=== PATIENT | female | born 1980 | race Caucasian/White ===

== ENCOUNTER 2017-02-08 11:38 | Emergency (ER) | payer SELFPAY ==
[~2017-02-08] VITALS: Ht 157.5 cm; Wt 75.2 kg
[2017-02-08] MEDS ORDERED: MORPHINE SULFATE 4 MG/ML, 1ML IVPush PRN (12:30)
[2017-02-08] MEDS ORDERED: SODIUM CHLORIDE 0.9% 1,000ML IVBOLUS ONE (12:30)
[2017-02-08] MEDS ORDERED: MORPHINE SULFATE 4 MG/ML, 1ML ONE (12:30)
[2017-02-08] MEDS ORDERED: ONDANSETRON 2MG/ML, 2ML IVPush ONE (12:30)
[2017-02-08] MEDS ORDERED: SODIUM CHLORIDE FLUSH 10ML SYR IVF ONE (12:30)
[2017-02-08] MEDS ORDERED: ONDANSETRON 2MG/ML, 2ML ONE (12:30)
[2017-02-08 12:45] LABS: ASPARTATE AMINO TRANSFERASE 53 U/L (15-37); BLOOD UREA NITROGEN 5 mg/dL (7-18)
[2017-02-08] MEDS ORDERED: POTASSIUM CHLORIDE 20 MEQ TAB.ER.PRT PO ONE (13:30)
[2017-02-08 14:06] VITALS: BP 110/58
== END 2017-02-08 14:08 | disposition home or self-care (01) ==
LOC: ED 12:15
DX: K52.9 Noninfective gastroenteritis and colitis, unspecified (principal); N30.00 Acute cystitis without hematuria
CPT/HCPCS: 36415; 80053; 81001; 83690; 84703; 85025; 87086; 96361; 96374; 99284; J2405; J7030

== ENCOUNTER 2018-08-20 17:54 | Emergency (ER) | payer OTHER ==
[~2018-08-20] VITALS: Ht 157.5 cm; Wt 84.0 kg
[2018-08-20] MEDS ORDERED: RANI150T23 PO (18:10)
[2018-08-20 18:22] LABS: BASOPHILS # (AUTO) 0.05 x10^3/uL (0-0.1); BASOPHILS % (AUTO) 1 % (0-1); EOSINOPHILS # (AUTO) 0.07 x10^3/uL (0-0.4); EOSINOPHILS % (AUTO) 1 % (1-7); LYMPHOCYTES # (AUTO) 3.92 x10^3/uL (1-3.4); LYMPHOCYTES % (AUTO) 47 % (22-44); MD NO; MEAN CORPUSCULAR HEMOGLOBIN 33.5 pg (27.0-34.8); MEAN CORPUSCULAR HGB CONC 34.6 g/dL (32.4-35.8); MEAN CORPUSCULAR VOLUME 96.7 fL (80-100); MEAN PLATELET VOLUME 7.3 fL (7.4-10.4); MONOCYTES % (AUTO) 8 % (2-9); NEUTROPHILS # (AUTO) 3.69 x10^3/uL (1.8-6.8); NEUTROPHILS % (AUTO) 44 % (42-75); PLATELET COUNT 289 x10^3/uL (130-400); RED BLOOD COUNT 4.61 x10^6/uL (3.82-5.3); RED CELL DISTRIBUTION WIDTH 13.7 % (9.6-15.2)
[2018-08-20] MEDS ORDERED: ONDANSETRON ODT 8 MG ONE (18:23)
[2018-08-20] MEDS ORDERED: ONDANSETRON ODT 8 MG PO ONE (18:30)
[2018-08-20 18:33] LABS: ALANINE AMINOTRANSFERASE 41 U/L (12-78); ALBUMIN 3.6 g/dL (3.4-5.0); ANION GAP 12 mmol/L (5-15); CALCIUM 7.8 mg/dL (8.5-10.1); CHLORIDE 111 mmol/L (98-107); CREATININE 0.61 mg/dL (0.55-1.02)
[2018-08-20 18:38] LABS: ALKALINE PHOSPHATASE 108 U/L (45-117); BILIRUBIN,TOTAL 0.2 mg/dL (0.2-1.0); TROPONIN I < 0.015 ng/mL (0.000-0.045)
--- NOTE | 2018-08-20 18:54 | NUR ---
REPORT GIVEN TO TAL
--- NOTE | 2018-08-20 18:58 | NUR ---
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 PT RESTING IN BED TALKING ON PHONE. PT ON ALL MONITORS. NAD AT THIS TIME.
[2018-08-20 20:09] VITALS: BP 123/61
== END 2018-08-20 20:12 | disposition home or self-care (01) ==
LOC: ED 19:42
DX: F10.220 Alcohol dependence with intoxication, uncomplicated (principal); R07.9 Chest pain, unspecified; Y90.9 Presence of alcohol in blood, level not specified
CPT/HCPCS: 36415; 71045; 80053; 80307; 83880; 84484; 85025; 93005; 99284; Q0162

== ENCOUNTER 2018-10-13 22:31 | Emergency (ER) | payer OTHER ==
[~2018-10-13] VITALS: Ht 157.5 cm; Wt 85.1 kg
[~2018-10-13 22:31] MED LIST: RANI150T23 PO
[2018-10-13 22:34] VITALS: BP 136/71
== END 2018-10-14 00:36 | disposition home or self-care (01) ==
LOC: ED 23:59
DX: L03.116 Cellulitis of left lower limb (principal); F32.9 Major depressive disorder, single episode, unspecified; Z72.9 Problem related to lifestyle, unspecified
CPT/HCPCS: 99284

== ENCOUNTER 2020-01-29 10:08 | Emergency (ER) | payer OTHER ==
[~2020-01-29] VITALS: Ht 157.5 cm; Wt 82.0 kg
[~2020-01-29 10:08] MED LIST changes: +RANI-467 PO; -RANI150T23 PO
[2020-01-29] MEDS ORDERED: SODIUM CHLORIDE FLUSH 10ML SYR IVF ONE (10:30)
[2020-01-29] MEDS ORDERED: ONDANSETRON 2MG/ML, 2ML IVPush ONE (10:30)
[2020-01-29] MEDS ORDERED: MORPHINE SULFATE 4 MG/ML, 1ML IVPush PRN (10:30)
[2020-01-29] MEDS ORDERED: KETOROLAC 30 MG/1 ML IVPush ONE (10:30)
[2020-01-29] MEDS ORDERED: KETOROLAC 30 MG/1 ML ONE (10:45)
[2020-01-29] MEDS ORDERED: ONDANSETRON 2MG/ML, 2ML ONE (10:45)
[2020-01-29 10:56] LABS: BASOPHILS # (AUTO) 0.05 x10^3/uL (0-0.1); BASOPHILS % (AUTO) 0 % (0-1); EOSINOPHILS # (AUTO) 0.11 x10^3/uL (0-0.4); EOSINOPHILS % (AUTO) 1 % (1-7); LYMPHOCYTES # (AUTO) 3.69 x10^3/uL (1-3.4); LYMPHOCYTES % (AUTO) 25 % (22-44); MD NO; MEAN CORPUSCULAR HEMOGLOBIN 30.1 pg (27.0-34.8); MEAN CORPUSCULAR HGB CONC 33.4 g/dL (32.4-35.8); MEAN CORPUSCULAR VOLUME 90.4 fL (80-100); MEAN PLATELET VOLUME 7.4 fL (7.4-10.4); MONOCYTES # (AUTO) 1.09 x10^3/uL (0.2-0.8); MONOCYTES % (AUTO) 7 % (2-9); NEUTROPHILS # (AUTO) 9.97 x10^3/uL (1.8-6.8); NEUTROPHILS % (AUTO) 67 % (42-75); PLATELET COUNT 299 x10^3/uL (130-400); RED BLOOD COUNT 5.03 x10^6/uL (3.82-5.3); RED CELL DISTRIBUTION WIDTH 12.9 % (9.6-15.2)
--- NOTE | 2020-01-29 10:57 | NUR ---
PT STATES LT AND RT CP STARTING THIS AM. PT IS RESTLESS AND ANXIOUS. PT VSS, PROTECTING OWN AIRWAY. PT PLACED ON ALL MONITORS, EKG COMPLETED. PT MEDICATED WITH TORADOL IV FIRST FOR PAIN, WILL GIVE MORPHINE NEXT NEEDED PER ORDERS. WILL REASSESS PT'S PAIN.
--- NOTE | 2020-01-29 10:58 | NUR ---
RECEIVED REPORT FROM CHRIS LARSEN. ASSUMING CARE AT THIS TIME.
[2020-01-29 11:04] LABS: ALANINE AMINOTRANSFERASE 38 U/L (12-78); ALBUMIN 3.6 g/dL (3.4-5.0); ANION GAP 6 mmol/L (5-15); CALCIUM 9.2 mg/dL (8.5-10.1); CHLORIDE 110 mmol/L (98-107); CREATININE 0.59 mg/dL (0.55-1.02)
[2020-01-29 11:07] LABS: ALKALINE PHOSPHATASE 110 U/L (45-117); BILIRUBIN,TOTAL 0.7 mg/dL (0.2-1.0); TOTAL PROTEIN 6.8 g/dL (6.4-8.2)
--- NOTE | 2020-01-29 11:33 | NUR ---
PT STATES HER PAIN IS A LOT BETTER AFTER MEDS.
[2020-01-29] MEDS ORDERED: MORPHINE SULFATE 4 MG/ML, 1ML ONE (13:29)
[2020-01-29 13:32] VITALS: BP 125/60
--- NOTE | 2020-01-29 13:32 | NUR ---
PT C/O 05/07 PAIN. PRN PAIN PIANO MECH[employer]IC PER SEP.
== END 2020-01-29 14:04 | disposition home or self-care (01) ==
LOC: ED 11:32
DX: M25.511 Pain in right shoulder (principal); R00.0 Tachycardia, unspecified
CPT/HCPCS: 36415; 71045; 73030; 80053; 83690; 85025; 85379; 93005; 96374; 96375; 99285; J1885; J2270; J2405